=== PATIENT | male | born 1985 | race Caucasian/White ===

== ENCOUNTER 2019-05-27 17:20 | Emergency (ER) | payer SELFPAY ==
[~2019-05-27] VITALS: Ht 180.3 cm; Wt 68.0 kg
[2019-05-27] MEDS ORDERED: IBUPROFEN 600MG TABLET PO ONE (20:00)
[2019-05-27 20:09] VITALS: BP 126/68
== END 2019-05-27 21:32 | disposition home or self-care (01) ==
LOC: ER 17:20
DX: M54.5 Low back pain (principal); F31.9 Bipolar disorder, unspecified; Y08.89XA Assault by other specified means, initial encounter; Y93.89 Activity, other specified; Y92.89 Other specified places as the place of occurrence of the external cause; Y99.8 Other external cause status; Z88.2 Allergy status to sulfonamides
CPT/HCPCS: 72100; 99283